=== PATIENT | female | born 1980 | race African-American/Black ===

== ENCOUNTER 2017-03-14 03:45 | Emergency (ER) | payer OTHER ==
[~2017-03-14] VITALS: Ht 175.3 cm; Wt 117.9 kg
[2017-03-14] MEDS ORDERED: TOPROL XL25 MG PO (04:19)
[2017-03-14] MEDS ORDERED: HYDROCHLOROTHIA25 M2 PO (04:20)
[2017-03-14 04:58] LABS: URINE BILIRUBIN NEGATIVE (Negative); URINE BLOOD NEGATIVE (Negative); URINE COLOR YELLOW; URINE GLUCOSE-RANDOM* NEGATIVE (Negative); URINE KETONES NEGATIVE (Negative); URINE LEUKOCYTES-REFLEX NEGATIVE (Negative); URINE PROTEIN (DIPSTICK) NEGATIVE (Negative); URINE SPECIFIC GRAVITY 1.015 (1.003-1.035)
[2017-03-14] MEDS ORDERED: BACTRIM DS TAB1 EACH PO (05:56)
[2017-03-14 06:06] VITALS: BP 211/106
[2017-03-15 19:08] LABS: CHLAMYDIA TRACHOMATIS-PCR Negative (Negative); NEISSERIA GONORRHEA-PCR Negative (Negative)
== END 2017-03-14 06:09 | disposition home or self-care (01) ==
LOC: ER 03:45
PROVIDERS: Emergency Medicine
DX: R10.30 Lower abdominal pain, unspecified (principal); N39.0 Urinary tract infection, site not specified; Z86.73 Personal history of transient ischemic attack (TIA), and cerebral infarction without residual deficits; Z88.0 Allergy status to penicillin